=== PATIENT | female | born 1945 | race Caucasian/White ===

== ENCOUNTER 2019-07-04 09:28 | Day surgery (SDC) | payer MEDICARE, OTHER, SELFPAY ==
[2019-06-28 12:43] LABS: Hematocrit 39.6 % (37-47); Mean Corp Hgb Conc 32.8 g/dL (32-36); Mean Corpuscular Hgb 28.1 pg (27.0-32.0); Mean Corpuscular Volume 85.7 fL (81-99); Mean Platelet Vol. 9.3 fl (6.2-12.0); Platelet Count 212 K/mm3 (150-450); RBC Distribution Width CV 12.7 % (11.6-14.6); RBC Distribution Width SD 39.8 fl (35.1-43.9); Red Blood Count 4.62 M/mm3 (4.2-5.4); White Blood Count 6.8 K/mm3 (4.4-11.0)
[2019-06-28 12:51] LABS: Prothrombin Time (Protime)PT. 13.4 SECONDS (11.7-14.9)
[2019-06-28 13:03] LABS: Creatinine, Serum 1.03 mg/dL (0.55-1.02); EST Glomerular Filtration Rate 56 mL/min (>60); Est Glom Filt Rate - Afr Amer 68 mL/min (>60)
--- NOTE | 2019-07-03 21:39 | PCM.HP.BLA ---
History and Physical Date of Admission: 07/04/19 Surgical History and Physical Joan Caceres, a 74 year old female 3 0 0 0 3, presents for Anterior Repair on June at 12:00. -- Pelvic Pressure -- Joan presents as referral from Dr. Juan Cha for possible Uterine Prolapse. Feels a sensation of pressure, more so when voiding. No vag discharge or pain. Prolapse which began 18 months ago. Joan claims it started gradually and has been present worsening in last couple months. It occurs intermittantly. It is located in the vagina. oJan characterizes the quality pressure and periodic urine retention. Severity is moderate and not improving. MEDICATIONS HISTORY: Patient is also takin. pravastatin 20 mg tablet, One pill by mouth once a day ALLERGIES: No Known Allergies Infections - Chicken pox and Measles Illnesses - Hypercholesterolemia Accidents - None Hospitalizations - see surgery Review of Systems: GENERAL - Denies fever, or chills SKIN - Denies skin changes EYES - reading glasses EARS - Denies difficulty hearing NOSE - Denies nasal congestion or bleeding MOUTH - Denies sore throat or difficulty swallowing NECK - Denies pain or swelling RESPIRATORY - slight cough due to end of cold virus CARDIOVASCULAR - Denies palpitations or chest pain GASTROINTESTINAL - Denies nausea, vomiting, diarrhea, constipation GENITOURINARY - Denies dysuria, frequency of urination, incontinence of urine MUSCULOSKELETAL - Denies joint or muscle pain NEUROLOGICAL - Denies localized numbness or weakness PSYCHIATRIC - Denies depression or anxiety ENDOCRINE - Denies heat or cold intolerance, weight loss or gain HEMATO-IMMUNOLOGIC - Denies excesive bleeding with cuts SOCIAL HISTORY: Alcohol Use - drinks occasionally Smoking - Never Diet - no special diet Lifestyle - moderate stress lifestyle and Exercise - active Seat Belt Use - always Employer - Retired/ Caregiver for starting w dementia Illicit Drug Use - None Sexual Activity - Spouse-Sig Other Name - Mynor Caceres Spouse-Sig Other Occupation - Retired Control - postmenopausal FAMILY HISTORY: nc MENSTRUAL HISTORY: LMP Known?- Postmenopausal PAST PREGNANCIES: Total Pregnancies - 3; Full Term Pregnancies - 3; Premature - 0; Abortions, Induced - 0; Abortions, Spontaneous - 0; Ectopics - 0; Multiple Births - 0; Living Children - 3 SURGICAL HISTORY: 1962 Facial Reconstruction PHYSICAL EXAM BP- 110/68 Sitting, Left arm, regular cuff Weight- 171.12517 lbs Height- 64 inch BMI:29.41 CONSTITUTIONAL - NAD, well nourished, and well developed SKIN - No rash, lesions, or ulcers HEENT - Normocephalic, PERRLA, EOMI NECK - No nodes, no nuchal rigidity and thyroid normal size and texture LYMPH NODES - Palpation of lymph nodes in neck and groins within normal limits LUNGS - CTA x2 without wheezes, crackles or rales CARDIAC - Regular rate and rhythm without rubs, murmurs, or gallops BREAST - No dominant masses, no tenderness, no axillary adenopathy, no nipple discharge, no skin changes ABDOMEN - Without hepatosplenomegaly, distention, masses, rebound, or guarding; normal bowel sounds; no hernias EXTREMITIES - No edema or calf tenderness NEUROLOGICAL - Cranial nerves II-XII grossly intact PSYCHIATRIC - A and O to time, place, person, mood and affect External Genitial Vagina - non-tender without lesions Urethra/Urethral Meatus - non-tender Bladder - non-tender Vagina - large cystocele and mild rectocele Cervix - without cervical motion tenderness and has normal size and features without evident lesions and uterus well supported with minimal decensus Uterus - 5-6 cm in size, mobile and nontender Adnexa - clear without massess or tenderness ASSESSMENT/PLAN: 1. Cystocele Midline Very symptomatic. Desires repair of cystocele. Given cervix seems so well supported will proceed with Anterior Repair. Discussed that Vag Hyst and AP Repair may be more appropriate after examination under general anesthesia. Discussed RBAs and all questions answered including possibility of proceeding with Vag Hyst and AP Repair.
[2019-07-04] VITALS (11 sets, daily range): BP systolic 101–135; BP diastolic 59–82; PULSE 74–86; RESP 16; TEMP 36.6–37.1; O2SAT 93–100; BMI 29.7
[2019-07-04] MEDS: Lactated Ringers 1,000 ML 100 ML IV (10:00)
--- NOTE | 2019-07-04 11:00 | UT_PTH ---
PATIENT: JES HURD LOC: [facility] [place] U#:[id number] AGE/SX: 74/F ROOM: RE07/04/[address]: Dr. Shane Zuniga MD : 1945 BED: DIS: 07/05/2019 SPEC #: [id number] RECD: 07/04/19 14:59 STATUS: CAMILO REFrancesco #: [id number] ANGELIC: 07/04/19 11:[address]: Shane Zuniga DEPT: SURGICAL PATHOLOGY RECD BY: Matthew Quinones ENTERED: 07/05/19 09:34 SP TYPE: UTERUS OTHR DR: Dr. Rusty Cha MD Tissues: Uterus, NOS Procedures: Surgery Specimen Level II Surgery Specimen Level V HEADER OPERATION: Vaginal hysterectomy, anterior repair PRE-OP DIAGNOSIS: Cystocele TISSUE SUBMITTED: Uterus, vaginal mucosa MICROSCOPIC DIAGNOSIS Uterus, hysterectomy: Cervix - nabothian cysts and mild chronic inflammation. Endometrium - inactive endometrium with cystic change. Myometrium - leiomyoma. Vaginal mucosa, anterior repair: Fragments of benign squamous mucosa and underlying soft tissue. AM:kasia 07/08/19 MICROSCOPIC DESCRIPTION Slides are reviewed. GROSS DESCRIPTION Received in fixative is one container labeled with the patient's name and designated vaginal mucosa and uterus. The specimen consists of a hysterectomy specimen consisting of uterus with cervix and detached pieces of mucosal tissue. The uterus with cervix weighs 34 gm and measures 8 x 4 x 2.5 cm. The serosal surface is martinez, glistening and shows a few instrumentation barba. The ectocervical mucosa is unremarkable. The external os is circular in contour. The endocervical canal measures 3 cm in length and the endocervical mucosa is martinez, glistening and unremarkable. The triangular endometrial cavity measures 4 cm in length and 1.2 cm in width. The endometrium is martniez, glistening without mass lesion and measures 0.1 cm in thickness. Sections of the uterine wall reveal a martinez, nodular mass measuring 1?cm in diameter. Sections of this mass reveals martinez whorled cut surfaces without areas of hemorrhage, necrosis or cystic degeneration. The mass is noted in the anterior uterine wall. The uninvolved uterine wall measures 1.3 cm in thickness. Also present in the container are two detached pieces of mucosal tissue measuring in aggregate 6 x 3 x 0.3 cm. No mucosal lesion is identified. Multiple instrumentation barba are noted. Charter Representative sections are submitted in seven cassettes as follows: 1 - anterior cervix, 2 - posterior cervix, 3 & 4 - anterior uterine wall, nodular mass, 5 & 6 - posterior uterine wall, 7??mucosal tissue. / SJ:kasia 07/05/19 TC:1 CPT: 53851, 53126
--- NOTE | 2019-07-04 11:13 | OP.PCM_ITS ---
Report of Operation Date of Procedure: 07/04/19 Pre-Operative Diagnosis: Cystocele Post-Operative Diagnosis: Uterovaginal Prolapse,Cystocele, Rectocele Surgery/Procedure Performed:: Vaginal Hysterectomy and Anterior Posterior Repair Description of Surgical Findings:: Large cystocele which protrudes 3-4 cm outside the introitus. After the patient was asleep it was noted that the cervix prolapsed to within about 1 to 2 cm of the vaginal introitus and there was a mild to moderate rectocele present. Given this it was felt that it would not be an inadequate repair to only proceed with the anterior repair so at this point it was decided to proceed with vaginal hysterectomy and anterior posterior repair. director of quantitative research: Coreen Wu Type of Anesthesia:: General - LMA Anesthesiologist: Marlo Calvert Drains: Cox to Straight Drain Estimated Blood Loss (mL): 200 cc Fluids Replaced: Crystalloid Description of Procedure: Surgeon: Shane Zuniga MD, FACOG Indications: This is a 74-year-old who is been having problems with pelvic pressure and prolapse symptoms. Conservative measures have not been helpful. In the office the patient was noted to have a very large cystocele and it appeared that the cervix and uterus were well supported. Given this it was decided to proceed with a cystocele repair. We also discussed the possibility of needing to proceed with a vaginal hysterectomy and AP repair if prolapse was noted to be significantly more pronounced when she was asleep. She has been counseled regarding the risk and indications of this procedure including the possibility of bleeding, infection, and injury to surrounding structures such as bowel bladder. All questions were answered. Procedure: Patient was taken to the operating room where after induction of general anesthesia she was placed in the dorsal lithotomy position and prepped and draped in the usual sterile fashion. A Cox catheter was placed. Anterior cervix was grasped with a tenaculum and the cervix was noted to protrude within 1 to 2 cm of the vaginal introitus and it was felt that an anterior repair would be insufficient to relieve her of the symptoms that she has been having. Given this it was decided to proceed with a vaginal hysterectomy and anterior posterior repair at this time. Anterior cervix was circumscribed with cautery on a setting of 35 W coagulation. Anterior vaginal mucosa was undermined and anterior peritoneum was easily entered. The posterior aspect of the cervix was circumscribed with a knife and posterior peritoneum easily entered. Progressive bites were taken on either side of the uterine cervix and each pedicle ligated with 0 Vicryl suture. Superior pedicles were ligated ?2 with 0 Vicryl suture and sidewall pedicles were examined and oversewn where necessary with [id number] 0 Vicryl suture to achieve hemostasis. Posterior vaginal cuff was oversewn with running locked 0 Vicryl suture. Hemostasis was noted and peritoneum was closed in a pursestring fashion incorporating superior pedicles into the stitch. Hemostasis was noted. Attention was turned toward the anterior repair portion of the procedure. Anterior vaginal mucosa was undermined and divided and then imbricated toward the midline with interrupted 0 Vicryl sutures. Vaginal mucosa was trimmed and then closed with interrupted 2-0 chromic suture. Vaginal cuff was then closed front to back with interrupted [id number] 0 Vicryl suture. Hemostasis was noted. Attention was turned toward the posterior repair portion of the procedure. Remnants of the hymenal ring were grasped with Allises and a V-shaped incision was made in the perineum. Rectovaginal mucosa was then undermined divided and then imbricated toward the midline with interrupted 0 Vicryl suture. Vaginal mucosa was trimmed and then closed with running locked 2-0 chromic suture. Remnants of the bulbocavernosus muscles were identified and brought toward the midline with a single [id number] 0 Vicryl suture and perineum was closed in the usual fashion with running and subcuticular, and [id number] 2-0 chromic suture. Hemostasis was noted. Cox catheter was again opened and clear yellow urine was noted. Vagina was packed with iodoform tape. Patient tolerated the procedure well was taken to recovery room in satisfactory condition; sponge instrument and needle counts were all reportedly correct. Estimated blood loss for the case was 200 cc. Cefotan 2 g IV was given prior to beginning the operative procedure. There were no apparent complications of the surgery. Specimen to pathology was uterus and vaginal mucosa. Grafts/Implants Used: None - Complications None - Admit VTE Documentation VTE Present on Admission: Yes VTE Mechan Device Prophylaxis: SCD's VTE Pharm Prophylaxis ordered?: Yes
--- NOTE | 2019-07-04 11:16 | DCINST_ITS ---
Discharge Diet: No Restrictions Discharge Activity: Return to Normal Activity, May Not Drive - while taking narcotic pain medications., May Shower, May Take a Tub Bath May resume sexual activity in: 6-8 weeks Call your doctor if your incision/area has: Continuous Slow Oozing, Sudden Inc reased Bleeding, Increased Pain/ Swelling, Increased Redness, Foul Smelling Discharge Call your doctor if you observe: Fever of 101 or Higher, Inability to urinate, Inability to have a bowel movement, Using more than one pad per hour Allergies/Adverse Reactions: Allergies No Known Allergies Allergy (Verified 07/04/19 09:52) Medications to take at Discharge Calcium Carbonate [Calcium] 600 mg PO DAILY 06/27/19 Multivitamin [Daily Multiple Vitamin] 1 ea PO DAILY 06/27/19 Pravastatin [Pravachol] 20 mg PO QHS 06/27/19 Docusate Sodium [Colace] 100 mg PO BID PRN PRN #60 cap 07/04/19 Oxycodone [Oxyir] 5 mg PO Q6H PRN PRN 7 Days #10 tablet 07/04/19 The following prescriptions were given: Docusate Sodium [Colace] 100 mg PO BID PRN PRN #60 cap PRN Reason: Constipation Transmission Status: Pending to [place], [place] Oxycodone [Oxyir] 5 mg PO Q6H PRN PRN 7 Days #10 tablet PRN Reason: Pain Score 6-10/10 Transmission Status: Sent to [place], [place] Primary Care Physician: Rusty Cha MD [Primary Care Provider] - Test Results: Test results from this visit will be discussed in further detail at your follow- up appointment, if applicable. Please Follow Up With: Shane Zuniga MD When: 2-3 weeks
[2019-07-04] MEDS: Lubricating Jelly 60 GM Tube 30 GM TOPICAL (11:22)
[2019-07-04] MEDS: Enoxaparin 30 MG/0.3 ML Syringe SC (20:22)
[2019-07-04] MEDS: Pravastatin 20 MG Tablet PO (21:57)
[2019-07-05] MEDS: 0.9% Saline Lock 10 ML Syringe IV (00:22)
[2019-07-05] MEDS: Ketorolac 10 MG Tablet PO ×2 (00:22→06:00)
[2019-07-05 03:40] VITALS: BP 111/59; PULSE 79; RESP 16; TEMP 36.7; O2SAT 95
[2019-07-05 06:16] LABS: Hematocrit 34.4 % (37-47); Hemoglobin 11.2 g/dL (12.0-15.0); Mean Corp Hgb Conc 32.6 g/dL (32-36); Mean Corpuscular Hgb 28.2 pg (27.0-32.0); Mean Corpuscular Volume 86.6 fL (81-99); Mean Platelet Vol. 8.7 fl (6.2-12.0); Platelet Count 266 K/mm3 (150-450); RBC Distribution Width CV 12.4 % (11.6-14.6); RBC Distribution Width SD 39.5 fl (35.1-43.9); Red Blood Count 3.97 M/mm3 (4.2-5.4); White Blood Count 9.5 K/mm3 (4.4-11.0)
[2019-07-05 06:25] LABS: Creatinine, Serum 1.02 mg/dL (0.55-1.02); EST Glomerular Filtration Rate 57 mL/min (>60); Est Glom Filt Rate - Afr Amer 68 mL/min (>60); Estimated Creatinine Clearance 42.42 ml/min
--- NOTE | 2019-07-05 09:07 | PCM.PN.OB ---
Subjective: Patient without complaints. Tolerating diet well. Minimal vaginal bleeding. Ready to go home. - Physical Exam Vitals/I&O's: Vital Signs Temp Pulse Resp BP Pulse Ox 98.1 F 79 16 111/59 L 95 07/05/19 03:40 07/05/19 03:40 07/05/19 03:40 07/05/19 03:40 07/05/19 03:40 Oxygen Delivery Method Room Air Weight: 173 lb 1.006 oz Body Mass Index (BMI) 29.7 Intake and Output for Last 24 Hours 07/03/19 07/04/19 07/05/19 23:59 23:59 23:59 Intake Total 2285 / 2285 250 / 250 Output Total 2570 / 2570 950 / 950 Balance -285 / -285 -700 / -700 Comment: Vag pack out minimal bleeding noted. Good UOP. Hgb and creatinine ok. Laboratory Results 07/05/19 05:38: WBC 9.5, RBC 3.97 L, Hgb 11.2 L, Hct 34.4 L, MCV 86.6, MCH 28.2, MCHC 32.6, RDW Std Deviation 39.5, RDW Coeff of John 12.4, Plt Count 266, MPV 8.7 07/05/19 05:38: Creatinine 1.02, Estim Creat Clear Calc 42.42, Est GFR (MDRD) Af Amer 68, Est GFR (MDRD) Non-Af 57 L Current Medications Acetaminophen (Tylenol) 1,000 mg PO Q8H PRN PRN PRN Reason: Pain Score 1-3/10 or Fever Docusate Sodium (Colace) 100 mg PO BID PRN PRN PRN Reason: Constipation Hydromorphone HCl (Dilaudid Inj) 0.5 mg IV Q3H PRN PRN PRN Reason: Pain Score 4-10/10 Ketorolac Tromethamine (Toradol) 10 mg PO Q6 ALICE Stop: 07/09/19 18:43 Last Admin: 07/05/19 06:00 Dose: 10 mg Documented by: Ondansetron HCl (Zofran) 4 mg IV Q4H PRN PRN PRN Reason: NAUSEA Oxycodone HCl (Oxyir) 5 mg PO Q4H PRN PRN PRN Reason: Pain Score 4-10/10 Pravastatin S[facility]achol) [facility] Last Admin: 07/04/19 21:57 Dose: 20 mg Documented by: Simethicone (Mylicon) 80 [facility] Last Admin: 07/04/19 21:57 Dose: 80 mg Documented by: Sodium Chloride () 10 - 40 ml IV UD PRN PRN Reason: SALINE FLUSH Last Admin: 07/05/19 00:22 Dose: 10 ml Documented by: Medical Necessity - Tobacco Use Smoking Status: Never smoker Tobacco Use: Non-smoker Assessment/Plan Doing well postoperative day #1 status post vaginal hysterectomy and anterior posterior repair. Will release to home with routine instructions.
[2019-07-05 09:40] VITALS: BP 120/65; PULSE 83; RESP 16; TEMP 36.9; O2SAT 97
== END 2019-07-05 11:10 | disposition home or self-care (01) ==
LOC: SDC 09:29 → AC 09:29 → MS3 12:50
PROVIDERS: Family Provider Family Medicine; PCP Family Medicine; Referring Provider Obstetrics & Gynecology; Visit Provider Obstetrics & Gynecology
PROC: (CPT 57260; principal; 2019-07-04 10:45)
DX: N81.4 Uterovaginal prolapse, unspecified (principal); N88.8 Other specified noninflammatory disorders of cervix uteri; D25.9 Leiomyoma of uterus, unspecified; E78.00 Pure hypercholesterolemia, unspecified
CPT/HCPCS: 00944; 57282; 58260; 36415; 82565; 85027; 85610; 85730; 86850; 86900; 86901; 88302; 88307; 99251; J7120; A4216; G0463; J2405

== ENCOUNTER → 2024-05-29 | Outpatient (CLI) | payer MEDICARE, OTHER, SELFPAY ==
[2024-05-29 18:11] LABS: AST(SGOT) 30 U/L (15-37); Alanine Aminotransfer ALT/SGPT 52 U/L (13-56); Alkaline Phosphatase 71 U/L (45-117); Bilirubin, Direct 0.13 mg/dL (0.00-0.30); Globulin 3.5 g/dL (2.2-4.2); Protein, Total 7.5 g/dL (6.4-8.2)
[2024-05-29 18:52] LABS: Hepatitis C Antibody Non-Reactive (Nonreactive)
[2024-06-03 09:22] LABS: Hepatitis B Core AB IgM Negative (Negative)
== END | disposition home or self-care (01) ==
PROVIDERS: PCP Family Medicine; Referring Provider Physician Assistant; Visit Provider Physician Assistant
DX: L43.8 Other lichen planus (principal)
CPT/HCPCS: 36415; 80076; 86705; 86803